=== PATIENT | female | born 1975 | race Two or more races ===

== ENCOUNTER 2025-03-07 14:56 | Emergency (ER) | payer MEDICAID, SELFPAY ==
[2025-03-07 14:56] VITALS: BMI 31.1
[2025-03-07 15:24] VITALS: BP 147/92; PULSE 67; RESP 18; TEMP 36.8; O2SAT 95
--- NOTE | 2025-03-07 15:50 | XR_ITS ---
Examination: CT soft tissue neck, with intravenous contrast. 2-D coronal reconstructions. 2-D sagittal reconstructions. Date and time of exam :March 07, 2025 at 1648 hours Comparison May 18, 2024 INDICATIONS: Left ear pain radiating to the left side of the neck left shoulder beginning today CTDI: vol (mGy):13.8 DLP: (mGycm):375 Technique: 1.25 mm axial sections of the neck of the obtained. Coronal and sagittal reconstructions have been obtained. Intravenous contrast administered 50 cc Isovue 370. Low dose protocols were performed. One or more of the following dose reduction techniques were used; automated exposure control, adjustment of the mA and/or KV according to patient size, use of iterative reconstruction technique. Findings: Large retention cysts in both maxillary antra. Symmetrical nasopharynx oropharynx The larynx appears normal Carotid triangle lymph nodes, the largest on the left side 15 mm on the right side 15 mm Symmetrical submandibular glands Calcification in the right thyroid Normal epiglottis Negative for otitis media, negative for otitis externa Negative for acute mastoiditis IMPRESSION: Cervical lymphadenopathy stable compared to May 18, 2024 Significant chronic maxillary sinusitis No soft tissue neck abscess Negative for mastoiditis Negative for otitis media otitis externa
--- NOTE | 2025-03-07 15:51 | PD.EDRME ---
Rapid Medical Screening Exam RME Arrival date/time: 03/07/25 14:56 This is a case of 49-year-old female who came in the emergency room due to left ear pain and neck masses for 3 days worsening of the symptoms this patient decided to start consult here in the emergency room Chief Complaint: Ear Vital signs: Vital Signs Temperature 98.2 F 03/07/25 15:24 Pulse Rate 67 03/07/25 15:24 Respiratory Rate 18 03/07/25 15:24 Blood Pressure 147/92 H 03/07/25 15:24 Pulse Oximetry (%) 95 03/07/25 15:24 Oxygen Delivery Method Room Air 03/07/25 15:24
[2025-03-07] MEDS: HYDROcodone/APAP 5/325 TABLET 1 TAB PO (15:57)
[2025-03-07 16:12] LABS: Basophils # (Auto) 0.1 Thou/mm3 (0.0-0.2); Basophils % (Auto) 1 % (0-2.5); Eosinophils # (Auto) 0.2 Thou/mm3 (0.0-0.5); Eosinophils % (Auto) 3 % (0-10); Hematocrit 34.8 % (36.0-46.0); Hemoglobin 12.1 g/dL (12.0-16.0); Immature Granulocytes % (Auto) 1 % (0-0); Immature Granulocytes Auto 0.07 Thou/mm3 (0.00-0.00); Lymphocytes # (Auto) 2.7 Thou/mm3 (1.0-4.8); Lymphocytes % (Auto) 31 % (10-50); Mean Corpuscular HGB Conc 34.8 g/dl (31.0-37.0); Mean Corpuscular Hemoglobin 27.8 pg (25.0-35.0); Mean Corpuscular Volume 80 fL (80-100); Monocytes # (Auto) 0.4 Thou/mm3 (0.0-0.8); Monocytes % (Auto) 5 % (0-12); Neutrophils # (Auto) 5.3 Thou/mm3 (1.8-7.7); Neutrophils % (Auto) 60 % (37-80); Nucleated Red Blood Cell % 0 /100 WBC (0); Platelet Count 247 Thou/mm3 (140-440); RDW Standard Deviation 39.6 fL (36.4-46.3); Red Blood Count 4.35 Miln/mm3 (4.00-5.20); White Blood Count 8.9 Thou/mm3 (3.6-11.0)
[2025-03-07 16:17] LABS: HCG Qualitative,Urine Negative
[2025-03-07 16:30] LABS: Alanine Aminotransferase 10 U/L (10-49); Albumin, Serum 4.3 gm/dL (3.5-5.0); Albumin/Globulin Ratio 1.8 (1.2-2.2); Alkaline Phosphatase 70 U/L (46-116); Anion Gap 10 (7-16); BUN/Creatinine Ratio 30 Ratio (12-20); Bilirubin,Total 0.3 mg/dL (0.3-1.2); Blood Urea Nitrogen 21 mg/dL (9-23); Calcium 9.4 mg/dL (8.3-10.6); Calcium (Corrected) 9.4 mg/dL (8.5-10.1); Carbon Dioxide 27.4 mMol/L (20.0-31.0); Chloride 107 mMol/L (98-107); Creatinine (Component) 0.7 mg/dL (0.6-1.3); Globulin 2.4 gm/dL (2.3-3.5); Glucose 123 mg/dL (74-106); Osmolality,Calculated 290 (275-295); Potassium 3.6 mMol/L (3.4-5.1); Sodium 144 mMol/L (136-145); Total Protein 6.7 gm/dL (5.7-8.2); eGFR > 60 See Note
--- NOTE | 2025-03-07 18:36 | PD.EDEAR ---
ED Ear RME/HPI General Chief complaint: Ear Stated complaint: LEFT EAR PAIN Time Seen by Provider: 03/07/25 15:52 Arrival date/time: 03/07/25 14:56 49-year-old female presents to the ED with complaint of ongoing left ear pain. She has seen her primary care physician and told she had an ear infection. She was prescribed antibiotics (amoxicillin) which she completed and is no better. Previously in April she was seen here and had a CT scan of this soft tissue neck which revealed multiple enlarged lymph nodes. It was recommended she have a repeat CT in 3 months which was in July. She has not seen an gear design engineer. She has been taking Tylenol which is not helping. She also states she has popping in her jaw when eating. Mode of arrival: ambulatory Limitations: no limitations RME / HPI RME / HPI Narrative: 03/07/25 14:56 This is a case of 49-year-old female who came in the emergency room due to left ear pain and neck masses for 3 days worsening of the symptoms this patient decided to start consult here in the emergency room Related Data Home Medications ?Medication ?Instructions ?Recorded ?Confirmed hydrochlorothiazide 25 mg tablet 25 mg PO QAM #0 tabs 11/21/16 12/16/17 lisinopril 20 mg tablet 20 mg PO BID #0 tabs 11/21/16 12/16/17 Previous Rx's ?Medication ?Instructions ?Recorded amoxicillin 875 mg-potassium 1 tab PO BID Chronic maxillary 03/07/25 clavulanate 125 mg tablet sinusitis #28 tabs meloxicam 15 mg tablet 15 mg PO QDAY #10 tabs 03/07/25 methocarbamol 750 mg tablet 750 mg PO Q8H #15 tabs 03/07/25 Allergies Allergy/AdvReac Type Severity Reaction Status Date / Time No Known Allergies Allergy Unknown Uncoded 12/16/17 09:35 Review of Systems Review of Systems Systems Reviewed: All systems reviewed, normal except as documented ED Exam Narrative Physical exam: Alert and oriented 49-year-old female, mild acute pain distress. TMs are without erythema bilaterally. Positive tenderness to the left TMJ area. Positive anterior cervical chain adenopathy. Lungs are clear, regular rate and rhythm without murmurs. General Limitations: Present no limitations Course Orders Category Date Time Status CT Screening NOW Care 03/07/25 15:50 Active Insert IV NOW Care 03/07/25 16:[address] soft tissue neck w con Stat Exams 03/07/25 15:50 Completed CBC Stat Lab 03/07/25 15:56 Completed CMP [Comprehensive Metabolic Panel] Stat Lab 03/07/25 15:56 Completed HCG Qualitative,Urine Stat Lab 03/07/25 16:04 Completed Diazepam [Valium] Med 03/07/25 18:49 Discontinued 10 mg PO X1 ONE HYDROcodone*/APAP 5/325 [[place] 5/325] Med 03/07/25 15:52 Discontinued 1 tab PO X1 ONE Ketorolac Inj [Toradol Inj] Med 03/07/25 18:49 Discontinued 30 mg IM X1 ONE Vital Signs Vital signs: Vital Signs Temperature 98.2 F 03/07/25 15:24 Pulse Rate 67 03/07/25 15:24 Respiratory Rate 18 03/07/25 15:24 Blood Pressure 147/92 H 03/07/25 15:24 Pulse Oximetry (%) 95 03/07/25 15:24 Oxygen Delivery Method Room Air 03/07/25 15:24 Ear Evaluation data Interpretation Summary: Ct Neck, Soft Tissue: Findings: Large retention cysts in both maxillary antra. Symmetrical nasopharynx oropharynx The larynx appears normal Carotid triangle lymph nodes, the largest on the left side 15 mm on the right side 15 mm Symmetrical submandibular glands Calcification in the right thyroid Normal epiglottis Negative for otitis media, negative for otitis externa Negative for acute mastoiditis IMPRESSION: Cervical lymphadenopathy stable compared to May 18, 2024 Significant chronic maxillary sinusitis No soft tissue neck abscess Negative for mastoiditis Negative for otitis media otitis externa Medications / Prescriptions Medication administrations:: Medication Administration History Discontinued Medications Hydrocodone Bitart/Acetaminophen (Hydrocodone/Apap 5/325 Tablet) 1 tab PO X1 ONE Stop: 03/07/25 15:53 Last Admin: 03/07/25 15:57 Dose: 1 tab Documented By: RICHA Diazepam (Diazepam 5 Mg Tablet) 10 mg PO X1 ONE Stop: 03/07/25 18:50 Last Admin: 03/07/25 19:03 Dose: 10 mg Documented By: WILIAN Ketorolac Tromethamine (Ketorolac Inj 60 Mg/2 Ml Vial) 30 mg IM X1 ONE Stop: 03/07/25 18:50 Last Admin: 03/07/25 19:04 Dose: 30 mg Documented By: KF Consultations Consultation(s) initiated? (list below): Yes Consultation #1 (Physician, Specialty, Details): Discussed case with Dr. Bernard who recommends therapy for chronic maxillary sinusitis. Medical Decision Making Lab Data 03/07/25 15:56 03/07/25 15:56 Labs: Lab Results 03/07/25 03/07/25 Range/Units 15:56 16:04 WBC 8.9 (3.6-11.0) Thou/mm3 RBC 4.35 (4.00-5.20) Miln/mm3 Hgb 12.1 (12.0-16.0) g/dL Hct 34.8 L (36.0-46.0) % MCV 80 (80-100) fL MCH 27.8 (25.0-35.0) pg MCHC 34.8 (31.0-37.0) g/dl RDW Std Deviation 39.6 (36.4-46.3) fL Plt Count 247 (140-440) Thou/mm3 Neut % (Auto) 60 (37-80) % Lymph % (Auto) 31 (10-50) % [place] % (Auto) 5 (0-12) % Eos % (Auto) 3 (0-10) % Baso % (Auto) 1 (0-2.5) % Neut # (Auto) 5.3 (1.8-7.7) Thou/mm3 Lymph # (Auto) 2.7 (1.0-4.8) Thou/mm3 [place] # (Auto) 0.4 (0.0-0.8) Thou/mm3 Eos # (Auto) 0.2 (0.0-0.5) Thou/mm3 Baso # (Auto) 0.1 (0.0-0.2) Thou/mm3 Immature Gran # (Auto) 0.07 H (0.00-0.00) Thou/mm3 Absolute Nucleated RBC 0.00 (0.00-0.00) Thou/mm3 Immature Gran % 1 H (0-0) % Nucleated RBC % 0 (0) /100 WBC Sodium 144 (136-145) mMol/L Potassium 3.6 (3.4-5.1) mMol/L Chloride 107 (98-107) mMol/L Carbon Dioxide 27.4 (20.0-31.0) mMol/L Anion Gap 10 (7-16) BUN 21 (9-23) mg/dL Creatinine 0.7 (0.6-1.3) mg/dL Estim Creat Clear Calc 106.0 (>60) mL/min eGFR > 60 (60 - ) See Note BUN/Creatinine Ratio 30 H (12-20) Ratio Glucose 123 H (74-106) mg/dL Calculated Osmolality 290 (275-295) Calcium 9.4 (8.3-10.6) mg/dL Corrected Calcium 9.4 (8.5-10.1) mg/dL Total Bilirubin 0.3 (0.3-1.2) mg/dL ALT 10 (10-49) U/L Alkaline Phosphatase 70 (46-116) U/L Total Protein 6.7 (5.7-8.2) gm/dL Albumin 4.3 (3.5-5.0) gm/dL Globulin 2.4 (2.3-3.5) gm/dL Albumin/Globulin Ratio 1.8 (1.2-2.2) Urine HCG, Qual Negative Discharge Plan Plan Patient Disposition: HOME (Self Care) Discharge Disposition comment: Stable and improved Prescriptions/Referrals Prescriptions/Med Rec: New amoxicillin-pot clavulanate 875-125 mg tablet 1 tab PO BID Qty: 28 0RF methocarbamol 750 mg tablet 750 mg PO Q8H Qty: 15 0RF Rx Instructions: Do not drive or operate machinery while taking this medication. meloxicam 15 mg tablet 15 mg PO QDAY Qty: 10 0RF No Action lisinopril 20 MG tablet 20 mg PO BID Qty: 0 hydrochlorothiazide 25 MG tablet 25 mg PO QAM Qty: 0 Referrals: Alla Hargrove [Primary Care Provider] - In 1 week Problem List Clinical Impression: Chronic left ear pain, Sinusitis, maxillary, chronic, TMJ arthralgia, Lymphadenopathy, anterior cervical Patient/Caregiver Discharge Instructions Education Materials: Chronic Sinusitis, Lymphadenopathy, ED Earache Without Infection (Adult), ED TMJ Syndrome Additional Instructions: Take the antibiotics as prescribed and complete the course even though you may be feeling better Follow-up with your primary care physician for referral to an gear design engineer/head neck surgeon for biopsies of your enlarged lymph nodes of your neck. Also request a referral to a dentist for the probable TMJ syndrome.. Follow-up with your primary care physician in 24 to 48 hours. Return to the ED for any new or worsening symptoms. Print Language: Polish Stand Alone Forms: [facility] Award Info., Patient Portal Info Letter PA/FIELD PROFESSIONAL Supervising Physician PA/FIELD PROFESSIONAL Supervising Physician: Dr. BERNARD
[2025-03-07] MEDS: DIAZEPAM 5 MG TABLET 10 MG PO (19:03)
[2025-03-07] MEDS: KETOROLAC INJ 60 MG/2 ML VIAL 30 MG IM (19:04)
[2025-03-07 20:36] VITALS: BP 138/78; PULSE 77; RESP 18; TEMP 36.8; O2SAT 98
== END 2025-03-07 20:37 | disposition home or self-care (01) ==
PROVIDERS: Nurse Practitioner Family; Emergency Provider Emergency Medicine; PCP Internal Medicine
DX: J32.0 Chronic maxillary sinusitis (principal); M26.622 Arthralgia of left temporomandibular joint; R59.0 Localized enlarged lymph nodes; H92.02 Otalgia, left ear
CPT/HCPCS: 36415; 70491; 80053; 81025; 85025; 96372; 99285; A4649; J1885; Q9967; A9270

== ENCOUNTER 2025-03-19 00:34 | Emergency (ER) | payer MEDICAID, SELFPAY ==
[2025-03-19 00:35] VITALS: BMI 32.1
[2025-03-19 01:02] VITALS: BP 116/71; PULSE 73; RESP 17; TEMP 36.8; O2SAT 95
[2025-03-19] MEDS: GABAPENTIN 300 MG CAPSULE PO (02:23)
--- NOTE | 2025-03-19 05:45 | PD.EDNEURO ---
Neuro Symptoms Deficit-RME/HPI General Chief Complaint: General Adult/Misc Complain Stated Complaint: LEFT EAR PAIN, HEAD PAIN Time Seen by Provider: 03/19/25 02:02 Arrival date/time: 03/19/25 00:34 49F with history of HTN presents to ED with 3 months of L ear pain that radiates down to chin. Patient had CT here 2 weeks ago which showed chronic sinusitis. Meds given then did not relieve pain. Patient denies tinnitus and dizziness. Limitations: no limitations Related Data Home Medications ?Medication ?Instructions ?Recorded ?Confirmed hydrochlorothiazide 25 mg tablet 25 mg PO QAM #0 tabs 11/21/16 12/16/17 lisinopril 20 mg tablet 20 mg PO BID #0 tabs 11/21/16 12/16/17 Previous Rx's ?Medication ?Instructions ?Recorded amoxicillin 875 mg-potassium 1 tab PO BID Chronic maxillary 03/07/25 clavulanate 125 mg tablet sinusitis #28 tabs meloxicam 15 mg tablet 15 mg PO QDAY #10 tabs 03/07/25 methocarbamol 750 mg tablet 750 mg PO Q8H #15 tabs 03/07/25 gabapentin 300 mg capsule 300 mg PO TID PRN nerve pain #10 03/19/25 caps Allergies Allergy/AdvReac Type Severity Reaction Status Date / Time No Known Allergies Allergy Verified 03/19/25 00:35 Review of Systems Review of Systems Systems Reviewed: All systems reviewed, normal except as documented Constitutional Constitutional: Reports system reviewed and no additional complaints, except as documented, Denies fever(s) and Denies headache(s) ENT Ears, Nose, Mouth, and Throat: Reports as per HPI, Denies disequilibrium, Reports otalgia and Denies headache(s) Cardiovascular Cardiovascular: Reports system reviewed and no additional complaints, except as documented, Denies chest pain and Denies dyspnea Respiratory Respiratory: Reports system reviewed and no additional complaints, except as documented, Denies cough and Denies dyspnea Gastrointestinal Gastrointestinal: Reports system reviewed and no additional complaints, except as documented, Denies abdominal pain, Denies nausea and Denies vomiting Neurologic Neurologic: Reports system reviewed and no additional complaints, except as documented, Denies confusion, Denies disequilibrium and Denies headache(s) Psychiatric Psychiatric: Denies confusion Past Medical History Past Medical History CARDIAC: Negative Cardiac Disorders or Congestive Heart Failure RESPIRATORY: Negative Chronic Obstructive Pulmonary Disease (COPD) or Asthma GENITOURINARY: Negative Renal Disease ENDOCRINE: Negative Diabetes Mellitus Type 1 or Diabetes Mellitus Type 2 HEMATOLOGIC: Negative Sickle Cell Disease Social History SMOKING STATUS: Never smoker ED Exam General Limitations: Present no limitations General appearance: Present alert and in no apparent distress Head Head exam: Present atraumatic Eye Eye exam: Present normal appearance, PERRL and EOMI ENT ENT exam: Present normal exam, normal oropharynx and mucous membranes moist Neck Neck exam: Present normal inspection, full ROM and trachea midline Chest Chest inspection: Present normal inspection and symmetric chest wall rise Respiratory Respiratory exam: Present normal lung sounds bilaterally Cardiovascular Cardiovascular exam: Present regular rate, normal rhythm and normal heart sounds Abdominal Exam Abdominal exam: Present soft and normal bowel sounds Extremities Exam Extremities exam: Present normal inspection and full ROM Back Exam Back exam: Present normal inspection and full ROM Neurological Exam Neurological exam: Present alert, oriented X3 and CN II-XII intact Psychiatric Psychiatric exam: Present normal affect and normal mood Skin Skin exam: Present warm, dry, intact and normal color Course Quality Measures none Orders Category Date Time Status Gabapentin [Neurontin] Med 03/19/25 02:12 Discontinued 300 mg PO X1 ONE Vital Signs Vital signs: Vital Signs Temperature 98.3 F 03/19/25 01:02 Pulse Rate 73 03/19/25 01:02 Respiratory Rate 17 03/19/25 01:02 Blood Pressure 116/71 03/19/25 01:02 Pulse Oximetry (%) 95 03/19/25 01:02 Oxygen Delivery Method Room Air 03/19/25 01:02 O2 at 95% on RA and WNLs Neuro Symptoms / Deficit MDM Narrative MDM Narrative:: 49F with history of HTN presents to ED with 3 months of L ear pain that radiates down to chin. Patient had CT here 2 weeks ago which showed chronic sinusitis. Meds given then did not relieve pain. Patient denies tinnitus and dizziness. Physical exam reveals normal L ear exam. Some facial tenderness, but no redness or swelling. Normal pupil response and EOM. CN II-XII grossly intact. Patient is afebrile, calm, and alert. No rash, Likely trigeminal neuralgia. Will trial gabapentin. Fleshing Machine Operator given. Patient data External records reviewed:: [facility] previous records Clinical information provided by:: patient Social determinants that could affect healthcare access:: none Patient has the following chronic illnesses:: HTN How is presenting disease/condition affected by chronic disease/condition?: uneffected by Evaluation data The following diagnostics were reviewed and interpreted by me:: other (specify) (none) Lab and/or radiology exams considered but not ordered:: not ordered Interpretation Summary: n/a Medications / Prescriptions Medications or Prescriptions considered but not ordered:: ordered Medication administrations:: Medication Administration History Discontinued Medications Gabapentin (Gabapentin 300 Mg Capsule) 300 mg PO X1 ONE Stop: 03/19/25 02:13 Last Admin: 03/19/25 02:23 Dose: 300 mg Documented By: CVL above Consultations Consultation(s) initiated? (list below): No Diagnosis Neuro Differential Diagnosis: carpal tunnel syndrome, convulsions, delirium, subarachnoid hemorrhage, peripheral neuropathy, cerebrovascular accident, multiple sclerosis, transient cerebral ischemia and other (trigeminal neuralgia ) Most likely diagnosis given after review of the tests above:: trigeminal neuralgia Admission Indicated Admission indicated?: not indicated Admission Request Was there a request for admission?: No Disposition Plan Disposition Plan: Discharge Discharge Attestation Discharge Attestation: The patient and all family members were given an opportunity to ask questions and understood the discharge instructions. Discharge instructions specifically effects, indications for sooner follow up or return to the emergency department, and the expected course of current diagnosis. Patient condition: Stable Discharge Plan Plan Patient Disposition: HOME (Self Care) Discharge Disposition comment: Stable Prescriptions/Referrals Prescriptions/Med Rec: New gabapentin 300 mg capsule 300 mg PO TID PRN (Reason: nerve pain) Qty: 10 0RF No Action lisinopril 20 MG tablet 20 mg PO BID Qty: 0 hydrochlorothiazide 25 MG tablet 25 mg PO QAM Qty: 0 amoxicillin-pot clavulanate 875-125 mg tablet 1 tab PO BID Qty: 28 0RF methocarbamol 750 mg tablet 750 mg PO Q8H Qty: 15 0RF Rx Instructions: Do not drive or operate machinery while taking this medication. meloxicam 15 mg tablet 15 mg PO QDAY Qty: 10 0RF Problem List Clinical Impression: Trigeminal neuralgia Patient/Caregiver Discharge Instructions Education Materials: ED Trigeminal Neuralgia Additional Instructions: Please follow-up with PCP within 24-48 hours and return immediately if symptoms worsen. If gabapentin improves pain, ask PCP for more. Can also ask about other meds. More like you need a neuro referral rather than ENT. Would also recommend brain MRI if you haven't had one yet. Print Language: [place] Stand Alone Forms: Patient Portal Info Letter PA/BAG PRESS OPERATOR Supervising Physician PA/BAG PRESS OPERATOR Supervising Physician: Dr. Pérez
== END 2025-03-19 02:37 | disposition home or self-care (01) ==
LOC: SERX 02:26
PROVIDERS: Emergency Provider Emergency Medicine; PCP Internal Medicine
DX: G50.0 Trigeminal neuralgia (principal)
CPT/HCPCS: 99282; A9270

== ENCOUNTER → 2025-04-07 | Outpatient (CLI) | payer MEDICAID, SELFPAY ==
--- NOTE | 2025-04-07 09:11 | XR_ITS ---
Examination: MRI brain without intravenous contrast. Date and time of exam: April 07, 2025 0916 hours INDICATIONS: Diagnosis hyperbilirubinemia, worsening headaches one year dizziness Technique: Multiple axial and sagittal images of the brain obtained. Siemens high-resolution 1.5 Suzanne short bore scanners utilized. Sagittal sections, T1-weighted, TR 500, TE 14, are performed. Axial sections proton-density and T2-weighted have been obtained. Inversion recovery axial images, TR 9, 260, TE 111, TI 2500. Diffusion weighted images, axial sections, TR 4800, TE 128, B value 1000 Axial sections, ADC map, TR 4800, TE 128 Findings: Enlargement of the sella turcica is not present. The optic chiasm and infundibular are not remarkable. Prepontine and interpeduncular cisterns are not enlarged. There is no localized enlargement of the medulla or wiliam. Fourth ventricle and cerebellar tonsils appear normal in position. No subacute area of hemorrhage density is seen. Mass in the cerebellopontine angle region is not evident. Globes symmetrical. Orbital musculature including medial lateral rectus muscles do not exhibit abnormality. Diffusion-weighted images demonstrate no focus of restricted diffusion. Increased white matter signal multiple scattered punctate foci increased signal in the right frontal parietal white matter Mass effect upon the ventricular system is not identified. Impression: Negative for acute hemorrhage mass effect or midline shift No acute infarct No pituitary macroadenoma Punctate focus increased signal in the white matter, demyelinating disease
== END | disposition home or self-care (01) ==
LOC: SMRI 08:55
PROVIDERS: PCP Internal Medicine; Referring Provider Internal Medicine; Visit Provider Internal Medicine
DX: G37.9 Demyelinating disease of central nervous system, unspecified (principal)
CPT/HCPCS: 70551